=== PATIENT | male | born 1990 | race Caucasian/White ===

== ENCOUNTER 2018-03-14 05:43 | Emergency (ER) | payer OTHER ==
[2018-03-14 05:59] VITALS: BP 124/84
--- NOTE | 2018-03-14 06:04 | EDM.PDOC ---
ED HPI GENERAL MEDICAL PROBLEM - General Chief Complaint: Burn Stated Complaint: SUNBURN ON LEG Time Seen by Provider: 03/14/18 05:53 Source of Information: Reports: Patient, Family () History Limitations: Reports: No Limitations - History of Present Illness INITIAL COMMENTS - FREE TEXT/NARRATIVE: The patient states that he fell asleep in the sun yesterday, 03/13/2018, sustaining a sunburn to his bilateral anterior legs. He also got excessive sun to his face and arms, but they do not hurt. He states that his legs were doing well until this morning. He has tried [id number] aloe, water, and a spray that he bottle at [facility]. The patient's PCP is the [facility] in clinic. - Related Data Allergies Allergy/AdvReac Type Severity Reaction Status Date / Time No Known Allergies Allergy Verified 09/30/16 15:46 Home Meds: Home Meds Cyclobenzaprine [Flexeril] 10 mg PO TID PRN #20 tablet 09/30/16 [Rx] Ibuprofen 800 mg PO Q8H PRN #20 tablet 09/30/16 [Rx] Past Medical History Endocrine/Metabolic History: Reports: Obesity/BMI 30+ - Past Surgical History Musculoskeletal Surgical History: Reports: Knee Replacement (left) Social & Family History - Tobacco Use Smoking Status *Q: Current Every Day Smoker Years of Tobacco use: 14 Packs/Tins Daily: 0.5 Packs/Tins Daily Comment: Down from 1.5 ppd - Alcohol Use Alcohol Use History: Yes Date/Time of Last Drink Comment: Quit August 2017, due to excess - Recreational Drug Use Recreational Drug Use: No - Living Situation & Occupation Living situation: Reports: , with Spouse Occupation: Employed (local intermodal truck driver) ED ROS GENERAL - Review of Systems Review Of Systems: ROS reveals no pertinent complaints other than HPI. ED EXAM, SKIN/RASH Exam: See Below Exam Limited By: No Limitations General Appearance: Alert, WD/WN, No Apparent Distress Eye Exam: Bilateral Eye: Normal Inspection Ears: Normal External Exam, Hearing Grossly Normal Nose: Normal Inspection Throat/Mouth: Normal Inspection, Normal Lips, Normal Voice, No Airway Compromise Head: Normocephalic, Other (Mild erythema to the face) Neck: Normal Inspection, Full Range of Motion Extremities: Normal Range of Motion, Normal Capillary Refill, Other (Erythema without blistering to the anterior bilateral legs, extending just slightly above the knees, and extending down to the ankles, consistent with a sunburn.) Neurological: Alert, Normal Cognition, No Motor/Sensory Deficits Psychiatric: Normal Affect Skin: Warm, Dry, Intact Course - Re-Assessments/Exams Free Text/Narrative Re-Assessment/Exam: 03/14/18 05:59 The patient sustained a sunburn to his anterior bilateral legs. I explained that there are no medicines to "unburn" the skin, and that the only treatment is symptomatic. I am recommending he use aloe gel, and take hung-[id number] ibuprofen. He can also try cool compresses to the painful areas. The patient expresses understanding. Departure - Departure Time of Disposition: 06:00 Disposition: Home, Self-Care 01 Condition: Good Clinical Impression: 1st degree sunburn - Discharge Information Referrals: PCP,None [Primary Care Provider] - Forms: ED Department Discharge Additional Instructions: You were seen in the emergency room for a painful sunburn to the front of both of your legs. Unfortunately, there are no medicines to "sunburn" the skin. The only treatment is symptomatic. We recommend that you apply aloe gel to the burned areas, and take over-the- counter ibuprofen, 2-3 tablets (400-600 mg) every 8 hours, with food, as needed for pain. If any other problems, please do not hesitate to return to the ER.
== END 2018-03-14 06:10 | disposition home or self-care (01) ==
LOC: JD.ED 05:43
DX: L55.0 Sunburn of first degree (principal); F17.210 Nicotine dependence, cigarettes, uncomplicated
CPT/HCPCS: 99282

== ENCOUNTER 2018-10-22 15:15 | Emergency (ER) | payer OTHER ==
[2018-10-22 15:26] VITALS: BP 144/87
[2018-10-22] MEDS ORDERED: Naproxen 500 MG Tab PO STA (15:43)
[2018-10-22] MEDS ORDERED: Orphenadrine 100 MG Tab.ER PO STA (15:43)
--- NOTE | 2018-10-22 15:50 | EDM.PDOC ---
ED HPI GENERAL MEDICAL PROBLEM - General Chief Complaint: Back Pain or Injury Stated Complaint: BACK PAIN Time Seen by Provider: 10/22/18 15:26 Source of Information: Reports: Patient, RN Notes Reviewed History Limitations: Reports: No Limitations - History of Present Illness INITIAL COMMENTS - FREE TEXT/NARRATIVE: The patient states that he was carrying 2 packs of soda around 14:45 this afternoon, when he developed sudden onset left mid-back pain. The pain is sharp in character, and made worse with most movements. The pain radiates up and down the left side of his back, but not to his abdomen, groin, or either lower extremity. The patient states that he has had this same pain with a year-daily frequency over the past year. He states that he has seen the [facility] and the [facility], that he has received x-rays and CT scans, all of which were unremarkable. He has not undergone a MRI of his back. He states that he has been treated with steroids, NSAIDs, and Flexeril, all without relief of symptoms. The patient did not take any medications today, prior to coming to the ED. The patient does not have a PCP. Middle Back Pain Score (Numeric/FACES): 7 - Related Data Allergies Allergy/AdvReac Type Severity Reaction Status Date / Time No Known Allergies Allergy Verified 10/22/18 15:25 Home Meds: Home Meds Naproxen 500 mg PO Q12H PRN #20 tablet 10/22/18 [Rx] Orphenadrine [Norflex] 1 tab PO Q12H PRN #14 tab.er 10/22/18 [Rx] Past Medical History Musculoskeletal History: Reports: Back Pain, Chronic Endocrine/Metabolic History: Reports: Obesity/BMI 30+ - Past Surgical History Musculoskeletal Surgical History: Reports: Knee Replacement (left, 2007) Social & Family History - Family History Family Medical History: Noncontributory - Tobacco Use Smoking Status *Q: Current Every Day Smoker Years of Tobacco use: 15 Packs/Tins Daily: 1 Packs/Tins Daily Comment: Down from 2 ppd - Caffeine Use Caffeine Use: Reports: None - Alcohol Use Alcohol Use History: Yes Date/Time of Last Drink Comment: Alcoholic, in recovery since late 2016 - Recreational Drug Use Recreational Drug Use: Yes Drug Use in Last 12 Months: No Recreational Drug Type: Reports: Marijuana/Hashish (Last smoked around 2013) - Living Situation & Occupation Living situation: Reports: , with Spouse 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 ED EXAM,LOWER BACK PAIN/INJURY - Physical Exam Exam: See Below Exam Limited By: No Limitations General Appearance: Alert, WD/WN, No Apparent Distress Respiratory/Chest: No Respiratory Distress, Lungs Clear, Normal Breath Sounds, No Accessory Muscle Use Cardiovascular: Normal Peripheral Pulses, Regular Rate, Rhythm, No Edema, No Gallop, No JVD, No Murmur, No Rub GI/Abdominal: Normal Bowel Sounds, Soft, Non-Tender, No Organomegaly, No Distention, No Abnormal Bruit, No Mass, Other (Obese) (Male) Exam: Deferred Rectal (Males) Exam: Deferred Back Exam: Other (No visible abnormality to the patient's left flank, such as swelling, erythema, ecchymosis, or abrasion. The patient reports that I am able to identify the source of his pain with palpation of his left paravertebral musculature, although it is minimally tender in that area. No left CVA tenderness whatsoever. Straight leg raise induces left flank pain around 45 bilaterally, but no radicular pain. The patient is able to flex only about 5. He is able to extend to less than 5. Is able to tilt the spine bilaterally to only about 5. Is able to twist the spine bilaterally to only about 5. Unilateral knee band is impaired bilaterally.) Extremities: Normal Inspection, Normal Range of Motion, Normal Capillary Refill Neurological: Alert, Normal Dorsiflexion, Normal Plantar Flexion, No Motor/ Sensory Deficits, Oriented x 3 Psychiatric: Normal Affect Skin Exam: Warm, Dry, Intact, Normal Color, No Rash Course - Vital Signs Last Recorded V/S: Last Vital Signs Temp 36.6 C 10/22/18 15:23 Pulse 69 10/22/18 15:23 Resp 18 10/22/18 15:23 BP 144/87 H 10/22/18 15:23 Pulse Ox 99 10/22/18 15:23 - Orders/Labs/Meds Meds: Medications Discontinued Medications Generic Name Dose Route Start Last Admin Trade Name Freq PRN Reason Stop Dose Admin Naproxen 500 mg 10/22/18 15:43 10/22/18 15:52 Naprosyn PO 10/22/18 15:44 500 mg ONETIME STA Administration Orphenadrine Citrate 100 mg 10/22/18 15:43 10/22/18 15:52 Norflex PO 10/22/18 15:44 100 mg ONETIME STA Administration - Re-Assessments/Exams Free Text/Narrative Re-Assessment/Exam: 10/22/18 15:44 Based on the patient's history and physical examination, his left flank pain appears to be due to a muscle spasm, not a kidney stone, and I don't suspect a herniated intervertebral disc. 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 In the meantime, I am recommending that he stay active. Swimming is best, but walking is good, as well. I will refer him to Dr. Whaley in the clinic. Departure - Departure Time of Disposition: 15:45 Disposition: Home, Self-Care 01 Condition: Fair Clinical Impression: Back muscle spasm - Discharge Information *PRESCRIPTION DRUG MONITORING PROGRAM REVIEWED*: Not Applicable *COPY OF PRESCRIPTION DRUG MONITORING REPORT IN PATIENT JEAN CARLOS: Not Applicable Prescriptions: Naproxen 500 mg PO Q12H PRN #20 tablet PRN Reason: Pain Orphenadrine [Norflex] 1 tab PO Q12H PRN #14 tab.er PRN Reason: Muscle Spasm Instructions: Muscle Cramps and Spasms Referrals: PCP,None [Primary Care Provider] - Audrey Whaley MD [Physician] - Forms: ED Department Discharge Additional Instructions: You were seen in the emergency room for recurrent left mid back pain. Based on your history and physical examination, your back pain appears to be due to a muscle spasm, as opposed to a herniated intervertebral disc or a kidney stone. You have been started on the pain reliever naproxen and the muscle relaxant Norflex. Prescriptions for both of these medicines have been sent to the [facility], located at [address] [place] [address]. Take one tablet of naproxen every 12 hours, with food, starting tomorrow morning , 10/23/2018, as prescribed. Take one tablet of Norflex every 12 hours, starting tomorrow morning, Tuesday, 07/2019, as prescribed. As discussed, it is important that you stay active, even though you will be sore. Swimming is best, but walking is good, as well. Follow-up with Dr. Audrey Whaley, or one of the other providers in the clinic, this week. If any other problems, please do not hesitate to return to the ER.
== END 2018-10-22 15:57 | disposition home or self-care (01) ==
LOC: JD.ED 15:15
DX: M62.830 Muscle spasm of back (principal); F17.210 Nicotine dependence, cigarettes, uncomplicated
CPT/HCPCS: 99283; A9270; 99284

== ENCOUNTER 2018-10-22 21:42 | Emergency (ER) | payer OTHER ==
[2018-10-22 22:00] VITALS: BP 134/78
[2018-10-22] MEDS ORDERED: Promethazine 25 MG/ML SDV IM ONE (22:15)
[2018-10-22] MEDS ORDERED: HYDROmorphone 1 MG/ML Syringe IM ONE (22:15)
--- NOTE | 2018-10-22 22:20 | EDM.PDOC ---
ED HPI GENERAL MEDICAL PROBLEM - General Chief Complaint: Back Pain or Injury Stated Complaint: PAIN IN LOWER BACK Time Seen by Provider: 10/22/18 22:14 Source of Information: Reports: Patient History Limitations: Reports: No Limitations - History of Present Illness INITIAL COMMENTS - FREE TEXT/NARRATIVE: 20-year-old male attends the ED once again today. He is having increasing left mid lower back pain. States he simply had a twist type injury where he was unloading a couple cases of soda pop when he developed sudden onset of severe pain in his left lower back. He was seen earlier today by Dr. Bliss. [place] of had a muscle strain. Placed on Naprosyn and Norflex which the patient was unable to get due to from see been closed. He returns tonight I merely for pain management as the pain is much worse. States it's never been this bad before. States even deep breathing causes pain to occur. Unable to sleep because of the severity of the pain. Is no radiculopathy just aggravated by movement and deep breathing. Very bad if he coughs. He is able to localize the pain very well to his left lower back at T11-T12 area Onset: Today Onset Date: 10/22/18 Onset Time: 09:00 Duration: Hour(s):, Getting Worse Location: Reports: Back (Left lower mid back) Quality: Reports: Ache, Sharp, Stabbing, Throbbing, Other Severity: Severe (Strong muscle spasms with movement and breathing.) Improves with: Reports: Rest (10) Worsens with: Reports: Other, Movement Context: Reports: Other (Was just unloading some). Denies: Activity, Exercise ( Coughing or deep breathing make it worse as well.), Lifting, Sick Contact, Trauma Associated Symptoms: Reports: No Other Symptoms ( thoughts of soda pop when the pain came on i.e. twisting motion.), Other (No radiculopathy) Treatments GROUP SEGMENT CONSULTANT: Reports: Acetaminophen, NSAIDS (Motrin without relief) Middle Back Pain Score (Numeric/FACES): 8 - Related Data Allergies Allergy/AdvReac Type Severity Reaction Status Date / Time No Known Allergies Allergy Verified 10/22/18 21:56 Home Meds: Home Meds Naproxen 500 mg PO Q12H PRN #20 tablet 10/22/18 [Rx] Orphenadrine [Norflex] 1 tab PO Q12H PRN #14 tab.er 10/22/18 [Rx] oxyCODONE HCl/Acetaminophen [Percocet 5-325 mg Tablet] 1 - 2 each PO Q4H PRN # 15 tablet 10/22/18 [Rx] Past Medical History - Past Health History Medical/Surgical History: Denies Medical/Surgical History Musculoskeletal History: Reports: Back Pain, Chronic Endocrine/Metabolic History: Reports: Obesity/BMI 30+ - Past Surgical History Musculoskeletal Surgical History: Reports: Knee Replacement Social & Family History - Family History Family Medical History: Noncontributory - Tobacco Use Smoking Status *Q: Current Every Day Smoker Years of Tobacco use: 10 Packs/Tins Daily: 1 - Caffeine Use Caffeine Use: Reports: None - Recreational Drug Use Recreational Drug Use: No - Living Situation & Occupation Living situation: Reports: , with Spouse Occupation: Employed (refuse driver) ED ROS GENERAL - Review of Systems Review Of Systems: See Below Constitutional: Denies: Fever, Chills, Malaise, Weakness, Fatigue, Decreased Appetite, Weight Loss HEENT: Reports: No Symptoms Respiratory: Reports: Shortness of Breath Cardiovascular: Reports: No Symptoms Endocrine: Reports: No Symptoms GI/Abdominal: Reports: No Symptoms : Reports: No Symptoms Musculoskeletal: Reports: Back Pain Skin: Reports: No Symptoms (Left mid low back pain. Radiculopathy) Neurological: Reports: No Symptoms Psychiatric: Reports: No Symptoms Hematologic/Lymphatic: Reports: No Symptoms Immunologic: Reports: No Symptoms ED EXAM, UPPER BACK/NECK PAIN - Physical Exam Exam: See Below Exam Limited By: Uncooperative General Appearance: Alert, WD/WN, Moderate Distress (He has a great deal of pain chronic get up off the gurney to stand for examination. I had to help him up.) Back Exam: Other (Examination of his back shows no pain on the right side of his back. On the left side he has localized paraspinal muscle spasm over T9 to lumbar 1. Point of maximal tenderness appears to be like the T11 rib head area. SPECT there is a rib head subluxation in this area.) Extremities: Normal Inspection, Normal Range of Motion, Non-Tender, No Pedal Edema Course - Vital Signs Last Recorded V/S: Last Vital Signs Temp 37.0 C 10/22/18 21:56 Pulse 86 10/22/18 21:56 Resp 16 10/22/18 21:56 BP 134/78 10/22/18 21:56 Pulse Ox 98 10/22/18 21:56 - Orders/Labs/Meds Meds: Medications Discontinued Medications Generic Name Dose Route Start Last Admin Trade Name Yunielq PRN Reason Stop Dose Admin Hydromorphone HCl 1 mg 10/22/18 22:15 Dilaudid IM 10/22/18 22:16 ONETIME ONE Promethazine HCl 25 mg 10/22/18 22:15 Phenergan IM 10/22/18 22:16 ONETIME ONE - Radiology Interpretation Free Text/Narrative:: 20-year-old male presents to the ED with acute left lower mid back pain. He states he's had problems in this area before but never to this severity. Pain started earlier this morning when he was unloading a couple of flights of soda pop with a twisting type injury. Examination reveals pain localized to T10 T11 T12 area left lower back. Primaxin tenderness appears to be the T11 rib head. I suspect there is a subluxated rib head in this area. Plan I will treat the patient with pain medication Dilaudid 1 mg IM with Phenergan 25 mg IM for muscle spasm relief. Prescription written for 15 tablets of Percocet 5/325 mg to be taken one or 2 every 4-6 hours as needed tomorrow and the next day for pain relief. I've referred him to a chiropractor for rib head adjustment. Departure - Departure Time of Disposition: 22:16 Disposition: Home, Self-Care 01 Condition: Fair Clinical Impression: Lower thoracic back pain, Back muscle spasm - Discharge Information *PRESCRIPTION DRUG MONITORING PROGRAM REVIEWED*: Not Applicable *COPY OF PRESCRIPTION DRUG MONITORING REPORT IN PATIENT JEAN CARLOS: Not Applicable Prescriptions: oxyCODONE HCl/Acetaminophen [Percocet 5-325 mg Tablet] 1 - 2 each PO Q4H PRN # 15 tablet PRN Reason: pain relief. Instructions: Back Pain, Adult, [id number] Referrals: PCP,None [Primary Care Provider] - Forms: ED Department Discharge Additional Instructions: Evaluation the emergency room tonight in regards to worsening low back pain. Examination reveals pain well localized to the 10th and 11th rib head on the left side with overlying severe muscle spasm. This is called rib head subluxation which often occurs from excessive stress twisting events. He was seen earlier today and prescribed Naprosyn and Norflex which were not able to get due to pharmacies being closed. In the ED was therefore an injection of pain medication Dilaudid 1 mg with Phenergan 25 mg to relieve muscle spasm. This will usually cause significant drowsiness and you should go home to bed. He will usually start to work fairly well and 45 minutes to an hour. I did write a prescription for pain medication Percocet 5/325 mg take one or 2 tablets every 4-6 hours as needed for pain relief for the next couple of days. I would strongly urge you to see a chiropractor tomorrow to have the rib heads readjusted. This usually provide significant pain relief within the next [address] Mijares a chiropractor in [facility] at [address] [place] [address] tomorrow. His phone number is [phone] to arrange an appointment.
== END 2018-10-22 23:00 | disposition home or self-care (01) ==
LOC: JD.ED 21:42
DX: M54.5 Low back pain (principal); M54.6 Pain in thoracic spine; M62.830 Muscle spasm of back; F17.210 Nicotine dependence, cigarettes, uncomplicated
CPT/HCPCS: 96372; 99283; J1170; J2550

== ENCOUNTER 2019-02-15 07:46 | Emergency (ER) | payer OTHER ==
[2019-02-15 08:13] VITALS: BP 133/89
[2019-02-15] MEDS ORDERED: HYDROmorphone 1 MG/ML Syringe IM ONE (08:34)
[2019-02-15] MEDS ORDERED: Ketorolac 60 MG/2 ML SDV IM ONE (08:34)
[2019-02-15] MEDS ORDERED: Cyclobenzaprine 10 MG Tab PO ONE (08:35)
--- NOTE | 2019-02-15 08:56 | EDM.PDOC ---
ED HPI GENERAL MEDICAL PROBLEM - General Chief Complaint: Back Pain or Injury Stated Complaint: UPPER BACK PAIN Time Seen by Provider: 02/15/19 08:18 Source of Information: Reports: Patient History Limitations: Reports: No Limitations - History of Present Illness INITIAL COMMENTS - FREE TEXT/NARRATIVE: The patient presents with upper back pain. He was lifting some totes at work yesterday and started having pain Last night he lifted totes again and made it worse. He now has muscle spasms in his upper left back into his shoulder. He has no numbness or weakness and he has no bowel or bladder problems. He has had trouble with both is thoracic and lumbar spine in the past. He has seen multiple providers and has been on medications and he has been to physical therapy. He has never had an MRI yet. Onset: Gradual Duration: Day(s): Location: Reports: Back Quality: Reports: Sharp Severity: Severe Improves with: Reports: None Worsens with: Reports: None Associated Symptoms: Reports: No Other Symptoms Upper Back Pain Score (Numeric/FACES): 8 - Related Data Allergies Allergy/AdvReac Type Severity Reaction Status Date / Time No Known Allergies Allergy Verified 02/15/19 08:13 Home Meds: Home Meds diazePAM [Valium] 5 mg PO TID PRN #20 tab 02/15/19 [Rx] oxyCODONE HCl/Acetaminophen [Percocet 5-325 mg Tablet] 1 - 2 each PO Q6HR PRN # 20 tablet 02/15/19 [Rx] Past Medical History - Past Health History Medical/Surgical History: Denies Medical/Surgical History Musculoskeletal History: Reports: Back Pain, Chronic Endocrine/Metabolic History: Reports: Obesity/BMI 30+ - Past Surgical History Musculoskeletal Surgical History: Reports: Knee Replacement Social & Family History - Family History Family Medical History: Noncontributory - Tobacco Use Smoking Status *Q: Current Every Day Smoker Years of Tobacco use: 14 Packs/Tins Daily: 0.5 - Caffeine Use Caffeine Use: Reports: Tea - Recreational Drug Use Recreational Drug Use: No - Living Situation & Occupation Living situation: Reports: , with Spouse Occupation: Employed (city bus driver) ED ROS GENERAL - Review of Systems Review Of Systems: See Below Constitutional: Reports: No Symptoms HEENT: Reports: No Symptoms Respiratory: Reports: No Symptoms Cardiovascular: Reports: No Symptoms Endocrine: Reports: No Symptoms GI/Abdominal: Reports: No Symptoms : Reports: No Symptoms Musculoskeletal: Reports: Back Pain (Upper) ED EXAM, UPPER BACK/NECK PAIN - Physical Exam Exam: See Below Exam Limited By: No Limitations General Appearance: Alert, No Apparent Distress Ears Exam: Normal External Exam Nose Exam: Normal Inspection Head Exam: Atraumatic, Normocephalic Neck Exam: Non-Tender, Normal Alignment, Normal Inspection Cardiovascular/Respiratory: Regular Rate, Rhythm, No M/R/G, Normal Breath Sounds , No Respiratory Distress GI/Abdominal: Soft, Non-Tender, No Organomegaly, No Mass Back Exam: Other ( Pain upon palpation with muscle spasms to the left upper back ) Extremities: Normal Inspection Course - Vital Signs Last Recorded V/S: Last Vital Signs Temp 97.9 F 02/15/19 08:10 Pulse 70 02/15/19 08:10 Resp 16 02/15/19 08:10 BP 133/89 02/15/19 08:10 Pulse Ox 98 02/15/19 08:10 - Orders/Labs/Meds Meds: Medications Discontinued Medications Generic Name Dose Route Start Last Admin Trade Name Alistair PRN Reason Stop Dose Admin Cyclobenzaprine HCl 10 mg 02/15/19 08:35 02/15/19 09:24 Flexeril PO 02/15/19 08:36 10 mg ONETIME ONE Administration Diazepam 5 mg 02/15/19 10:05 02/15/19 10:11 Valium. PO 02/15/19 10:06 5 mg ONETIME ONE Administration Hydromorphone HCl 1 mg 02/15/19 08:34 02/15/19 09:19 Dilaudid IM 02/15/19 08:35 1 mg ONETIME ONE Administration Ketorolac Tromethamine 60 mg 02/15/19 08:34 02/15/19 09:21 Toradol IM 02/15/19 08:35 60 mg ONETIME ONE Administration - Re-Assessments/Exams Free Text/Narrative Re-Assessment/Exam: 02/15/19 08:52 I ordered toradol 30mg IM, dilaudid 1mg IM and flexeril 10mg PO. I also ordered an MRI of his spine for Tuesday at . 02/15/19 10:43 He says the meds helped some but he is still getting muscle spasms. I ordered some valium 5mg by mouth. He felt better after that. I will get him a prescription for valium and percocet. Departure - Departure Time of Disposition: 10:45 Disposition: Home, Self-Care 01 Condition: Good Clinical Impression: Thoracic spine pain, Lumbar spine pain, Back muscle spasm - Discharge Information *PRESCRIPTION DRUG MONITORING PROGRAM REVIEWED*: No *COPY OF PRESCRIPTION DRUG MONITORING REPORT IN PATIENT JEAN CARLOS: No Prescriptions: oxyCODONE HCl/Acetaminophen [Percocet 5-325 mg Tablet] 1 - 2 each PO Q6HR PRN # 20 tablet PRN Reason: Pain diazePAM [Valium] 5 mg PO TID PRN #20 tab PRN Reason: Pain Referrals: PCP,None [Primary Care Provider] - Fanny Jimenez PA-C [Physician Splicer Helper] - 1 Week Forms: ED Department Discharge Additional Instructions: Take the valium every 8 hours as needed for muscle spasms and back pain. Take motrin or aleve for the pain. If that does not help, try the percocet. I have scheduled an MRI for Tuesday at 10am. Please come early to register. Follow up with Fanny Jimenez next week. Please return if you are worse.
[2019-02-15] MEDS ORDERED: Diazepam 5 MG Tab PO ONE (10:05)
== END 2019-02-15 11:25 | disposition home or self-care (01) ==
LOC: JD.ED 07:46
DX: M62.830 Muscle spasm of back (principal); M54.6 Pain in thoracic spine; M54.5 Low back pain; E66.9 Obesity, unspecified; F17.210 Nicotine dependence, cigarettes, uncomplicated
CPT/HCPCS: 96372; 99283; A9270; J1170; J1885

== ENCOUNTER 2023-10-06 14:35 | Emergency (ER) | payer OTHER ==
[2023-10-06] MEDS ORDERED: Ketorolac 60 MG/2 ML SDV IM ONE (16:01)
[2023-10-06 17:07] VITALS: BP 119/74; PULSE 74
== END 2023-10-06 16:30 | disposition home or self-care (01) ==
LOC: JD.ED 14:35
DX: M25.562 Pain in left knee (principal); E66.9 Obesity, unspecified; Z68.38 Body mass index [BMI] 38.0-38.9, adult
CPT/HCPCS: 73562; 96372; 99283; J1885